=== PATIENT | male | born 1985 | race Caucasian/White ===

== ENCOUNTER 2024-07-26 18:18 | Inpatient (IN) | payer OTHER ==
[~2024-07-26] VITALS: Ht 162.6 cm; Wt 81.8 kg
[2024-07-26] MEDS: ONDANSETRON HCL 4 MG/2 ML VIAL IVP ONE (21:05)
[2024-07-26 21:15] LABS: BASOPHILS % (AUTO) 0.3 % (0.0-2.0); HEMATOCRIT 43.8 % (41-53); HEMOGLOBIN 14.6 g/dL (13.5-17.5); LYMPHOCYTES # (AUTO) 1.4 K/uL (1.0-4.8); LYMPHOCYTES % (AUTO) 16.4 % (22.0-44.0); MEAN CORPUSCULAR HEMOGLOBIN 28.6 pg (26.0-34.0); MEAN CORPUSCULAR HGB CONC 33.4 G/dL (31.0-37.0); MEAN CORPUSCULAR VOLUME 86 fL (80-100); MONOCYTES # (AUTO) 0.4 K/uL (0.1-1.0); MONOCYTES % (AUTO) 4.5 % (2.0-9.0); NEUTROPHILS # (AUTO) 6.6 K/uL (1.8-7.7); NEUTROPHILS % (AUTO) 77.8 % (40.0-70.0); PLATELET COUNT (AUTO) 325 K/uL (150-450); RED BLOOD CELL COUNT(AUTO) 5.11 MIL/uL (4.50-5.90); RED CELL DISTRIBUTION WIDTH 13.9 % (11.5-14.5); WHITE BLOOD COUNT (AUTO) 8.5 K/uL (4.5-11.0)
[2024-07-26 21:17] LABS: ANION GAP 9 mmol/L (8-16); CALCIUM, TOTAL 9.4 mg/dL (8.8-10.5); CARBON DIOXIDE 27 mmol/L (22-29); CHLORIDE 101 mmol/L (98-107); CREATININE 0.85 mg/dL (0.60-1.30); GLOMERULAR FILTR. RATE CALC > 60 mL/min (>60); GLUCOSE,RANDOM 93 mg/dL (70-110); POTASSIUM 3.8 mmol/L (3.5-5.1); SODIUM SERUM 137 mmol/L (136-145); UREA NITROGEN, BLOOD 13 mg/dL (7-18)
[2024-07-26 21:22] LABS: ALBUMIN 4.2 g/dL (3.4-5.0); BILIRUBIN,DIRECT 0.2 mg/dL (0.00-0.20); BILIRUBIN,TOTAL 0.7 mg/dL (0.1-1.0); TOTAL PROTEIN, SERUM 7.4 g/dL (6.4-8.2)
[2024-07-26] MEDS ORDERED: MAGNESIUM HYDROXIDE SUSPENSION 30 ML UDCUP PO PRN (21:30)
[2024-07-26] MEDS: ACETAMINOPHEN 325 MG TABLET PO PRN (21:38)
[2024-07-26] MEDS: SODIUM CHLORIDE 0.9% 1,000 ML IV ONE (21:38)
[2024-07-26] MEDS: LORazepam 2 MG/ML VIAL IVP PRN (21:48)
[2024-07-27 00:17] VITALS: BP 138/72; PULSE 82; RESP 18; TEMP 97.7; O2SAT 98
[2024-07-27] MEDS: ZOLPIDEM TARTRATE 5 MG TABLET PO PRN (00:37)
[2024-07-27 08:31] VITALS: BP 114/84; PULSE 89; RESP 18; TEMP 97.7; O2SAT 96
[2024-07-27] MEDS: FAMOTIDINE 20 MG TABLET PO SCH (08:36)
[2024-07-27] MEDS: SODIUM CHLORIDE 0.9% 1,000 ML IV ONE (10:59)
[2024-07-27] MEDS: ONDANSETRON HCL 4 MG/2 ML VIAL IVP PRN (11:37)
[2024-07-27 12:00] LABS: APPEARANCE,URINE CLEAR (CLEAR); BILIRUBIN,URINE NEGATIVE (NEGATIVE); COLOR,URINE YELLOW (YELLOW); GLUCOSE, URINE (UA) NEGATIVE (NEGATIVE); LEUKOCYTE ESTERASE ,URINE NEGATIVE (NEGATIVE); NITRATE,URINE NEGATIVE (NEGATIVE); OCCULT BLOOD,URINE NEGATIVE (NEGATIVE); PH,URINE 6.5 (5.0-8.0); PROTEIN,URINE TRACE mg/dL (NEGATIVE); SPECIFIC GRAVITIY, URINE 1.033 (1.003-1.030); UROBILINOGEN,URINE <=1.0 mg/dL (<=1.0)
[2024-07-27 12:03] LABS: PH,URINE DRUG SCREEN 6.5 (5.0-8.0)
[2024-07-27 12:18] LABS: ALCOHOL, URINE DRUG SCREEN NEGATIVE (NEGATIVE); AMPHET/METH SCREEN,URINE POSITIVE (NEGATIVE); BARBITURATE SCREEN, URINE NEGATIVE (NEGATIVE); BENZODIAZEPINES SCREEN,URINE NEGATIVE (NEGATIVE); CANNABINOID SCREEN,URINE POSITIVE (NEGATIVE); COCAINE SCREEN,URINE NEGATIVE (NEGATIVE); METHADONE SCREEN, URINE NEGATIVE (NEGATIVE); OPIATE SCREEN,URINE POSITIVE (NEGATIVE); PHENCYCLIDINE SCREEN,URINE NEGATIVE (NEGATIVE)
[2024-07-27 19:11] VITALS: BP 125/76; PULSE 68; RESP 18; TEMP 98.4; O2SAT 97
[2024-07-28 03:07] LABS: HEPATITIS C AB (EIA) Non Reactive (Non Reactive)
[2024-07-28 04:53] VITALS: BP 110/77; PULSE 90; RESP 18; TEMP 98.4; O2SAT 100
[2024-07-28 07:39] VITALS: BP 115/76; PULSE 86; RESP 18; TEMP 98.1; O2SAT 98
[2024-07-28] MEDS: SODIUM CHLORIDE 0.9% 1,000 ML IV ONE (09:45)
[2024-07-28 15:45] VITALS: BP 119/77; PULSE 77; RESP 18; TEMP 98.8; O2SAT 99
[2024-07-28 19:51] VITALS: BP 122/78; PULSE 69; RESP 19; TEMP 98.6; O2SAT 99
[2024-07-28] MEDS: BISMUTH SUBSALICYLATE 525 MG/30 ML SUSPENSION UDCUP PO PRN (23:03)
[2024-07-29 08:06] VITALS: BP 118/73; PULSE 64; RESP 18; TEMP 97.9; O2SAT 99
[2024-07-29] MEDS: LOPERAMIDE HCL 2 MG CAPSULE PO PRN (13:29)
[2024-07-29 19:40] VITALS: BP 108/70; PULSE 62; RESP 18; TEMP 98.4; O2SAT 98
[2024-07-30 04:20] VITALS: BP 101/75; PULSE 69; RESP 18; TEMP 98.4; O2SAT 99
[2024-07-30 09:26] VITALS: BP 119/80; PULSE 69; RESP 20; TEMP 98.2; O2SAT 98
== END 2024-07-30 12:00 | DRG 897 ==
LOC: EMS 18:18 → EDH 21:19 → 6S 23:53
PROVIDERS: ADMIT Internal Medicine; ATTEND Internal Medicine
DX: F15.13 Other stimulant abuse with withdrawal (principal); F11.13 Opioid abuse with withdrawal; E66.9 Obesity, unspecified; R19.7 Diarrhea, unspecified; Z68.31 Body mass index [BMI] 31.0-31.9, adult; Z71.51 Drug abuse counseling and surveillance of drug abuser
CPT/HCPCS: 80048; 80076; 80307; 81003; 83690; 85025; 86803; 87340; 96361; 96374; 99285; J2060; J2405; J7030; 36415-L1; 36415-TC